=== PATIENT | male | born 1975 | race Caucasian/White ===

== ENCOUNTER 2021-09-09 20:37 | Emergency (ER) | payer BC, SELFPAY ==
[2021-09-09 20:53] VITALS: BP 147/75; PULSE 89; RESP 18; TEMP 36.7; O2SAT 99
--- NOTE | 2021-09-09 20:57 | ED_ITS ---
HPI - Wound/Laceration General Chief Complaint: Wound/Laceration Stated Complaint: laceration to lip Time Seen by Provider: 09/09/21 20:57 History of Present Illness HPI narrative: 46-year-old male presents the emergency room for evaluation of a upper lip laceration. Patient states that the injury occurred just prior to arrival. States he was roughhousing with his kids, and is uncertain as to how the injury occurred. Patient speculates he was hit in the mouth accidentally by one of his kids. Tetanus is up-to-date. Related Data Allergies Allergy/AdvReac Type Severity Reaction Status Date / Time No Known Allergies Allergy Unverified 07/27/16 17:40 Review of Systems Review of Systems: CONSTITUTIONAL: Denies fever, chills, or sweats. EYES: Denies visual changes, redness, or discharge. ENT: Denies rhinorrhea, congestion, sore throat, or otalgia. CARDIOVASCULAR: Denies chest pain, palpitations, or edema. RESPIRATORY: Denies cough or dyspnea. GASTROINTESTINAL: Denies abdominal pain, nausea, vomiting, or diarrhea. GENITOURINARY: Denies dysuria or hematuria. SKIN: Reports laceration to lip MUSCULOSKELETAL: Denies back pain, joint pain, or myalgia. NEUROLOGIC: Denies headache, numbness, dizziness, or weakness. PSYCHIATRIC: Denies anxiety or depression. Exam Narrative: GENERAL: Well-appearing, well-nourished, no physical limitations, and in no acute distress. HEAD: Normocephalic, atraumatic. EYES: Conjunctivae normal, PERRLA and EOMI. CHEST: Clear to auscultation. No respiratory distress. No wheezes rales or rhonchi. No tenderness. HEART: Regular rate and rhythm. No murmur heard. Normal peripheral pulses. BACK: No CVA tenderness; No cervical/thoracic/lumbar tenderness, step-offs, bony abnormality; FROM EXTREMITIES: Normal range of motion. No edema. No clubbing or cyanosis SKIN: Upper lip: 1 cm stellate laceration NEURO: No focal deficits. Alert and oriented x3. MAEW. CN's II-XI intact bilaterally, normal gait PSYCH: Cooperative. Normal mood and affect. Procedures Laceration Laceration 1: Date: 09/09/21 Time: 21:25 Site: lip Size (cm): 2 Description: stellate Depth: simple, single layer Local Anesthetic: lidocaine 1% Amount of anesthesia used (mL): 3 Pre-repair: irrigated ====== Skin Level ====== Skin layer closed with: nylon Size (cm): 6-0 Number of sutures: 4 Technique: simple, interrupted ====== Subcutaneous Layer ====== ====== Muscle Layer ====== ====== Tendon Layer ====== Discharge Plan Discharge Clinical Impression: Laceration Patient Disposition: Home, Self-Care Condition: Stable Instructions: Antibiotic Form, Laceration (ED) Additional Instructions: Tylenol and ibuprofen as needed for pain. Stitches can come out in 5 to 7 days. Monitor for signs of infection which include area of redness, swelling, increas ed pain and/or discharge. Prescriptions: New cephalexin 500 mg capsule 500 mg PO Q12H 7 Days Qty: 14 0RF Follow-up/Referrals: UNKNOWN,DOCTOR [Primary Care Provider] - Time of Disposition: 21:26
[2021-09-09] MEDS: LIDOCAINE HCL 1% LOCAL INJ 20 ML VIAL (21:08)
[2021-09-09 21:52] VITALS: BP 126/70; PULSE 74; RESP 18; TEMP 37; O2SAT 100
== END 2021-09-09 21:54 | disposition home or self-care (01) ==
LOC: ANHED 21:38
PROVIDERS: Emergency Provider Nurse Practitioner Family
DX: S01.511A Laceration without foreign body of lip, initial encounter (principal); X58.XXXA Exposure to other specified factors, initial encounter; Y93.83 Activity, rough housing and horseplay
CPT/HCPCS: 12011; 99283

== ENCOUNTER 2021-09-16 15:34 | Emergency (ER) | payer BC, SELFPAY ==
--- NOTE | 2021-09-16 15:40 | ED_ITS ---
HPI - Wound/Laceration General Chief Complaint: Wound/Laceration Stated Complaint: SUTURE REMOVAL Time Seen by Provider: 09/16/21 15:40 Source: patient Mode of arrival: ambulatory Limitations: no limitations History of Present Illness HPI narrative: Mr. López is a 46-year-old male patient presenting to the clinic today for suture removal. He denies any other concerns. Related Data Allergies Allergy/AdvReac Type Severity Reaction Status Date / Time No Known Allergies Allergy Verified 09/16/21 15:41 Review of Systems Review of Systems: Pertinent positives per HPI. Patient denies any fever, chills, rash, headache, visual changes, dizziness, cough, runny nose, sore throat, shortness of breath, chest pain, palpitations, nausea, vomiting, diarrhea, constipation, abdominal pain, or any urinary issues. PMFSH Comments At the time of my signature, I reviewed and agree with the nursing past medical, surgical, social, and family history. There is no relevant family history pertinent to the patient complaint. Exam Narrative: General: Well-developed, well nourished, in no apparent distress Head: Normocephalic, atraumatic. Cardio: Regular rate and rhythm, s1 and s2 normal, no murmur appreciated. Resp: Clear to auscultation bilaterally, no rhonchi, rales, wheezing or rubs. Integumentary: [place], warm, and dry, intact without lesion, no rashes. [address] to mid upper lip. Dried blood covering the wound and sutures removed, patient tolerated fair. Course Course Emergency Course: Portions of this record may have been created with voice recognition software. Level of Care: Express Care Visit Vital Signs Vital signs: Vital signs reviewed MDM - Wound/Laceration MDM Narrative Medical decision making narrative: Patient is here for encounter for suture removal. Sutures removed and wound is well-healed. Supportive measures were discussed with the patient he voiced understanding of discharge instructions Differential Diagnosis Differential diagnosis: Likely laceration (Healed laceration, suture removal) Discharge Plan Discharge Clinical Impression: Encounter for removal of sutures Patient Disposition: Home, Self-Care Condition: Stable Instructions: Stitches Removal (ED) Additional Instructions: 4 Sutures removed in clinic today. Keep area clean and dry May apply triple antibiotics oint to the area twice daily x 2 days. Follow-up as needed Prescriptions: No Action cephalexin 500 mg capsule 500 mg PO Q12H 7 Days Qty: 14 0RF Follow-up/Referrals: PHYSICIAN,BIT TRIPOLER [Primary Care Provider] - Time of Disposition: 16:05 Quality NIHSS Nursing Documentation ED NIHSS nursing documentation: reviewed/agree
[2021-09-16 15:41] VITALS: BP 144/92; PULSE 68; RESP 16; TEMP 37.1; O2SAT 100
== END 2021-09-16 16:05 | disposition home or self-care (01) ==
PROVIDERS: Emergency Provider Nurse Practitioner Family
DX: S01.511D Laceration without foreign body of lip, subsequent encounter (principal); X58.XXXD Exposure to other specified factors, subsequent encounter
CPT/HCPCS: 99211; G0463